=== PATIENT | female | born 1990 | race Caucasian/White ===

== ENCOUNTER 2017-08-07 20:52 | Emergency (ER) | payer BC ==
[~2017-08-07] VITALS: Ht 160 cm; Wt 52.2 kg
[2017-08-07 21:31] VITALS: BP 120/84
[2017-08-07] MEDS ORDERED: hydrOXYzine PAMOATE 25 MG CAPSULE PO STA (21:34)
[2017-08-07] MEDS ORDERED: FAMOTIDINE 20 MG TABLET PO ONE (21:45)
[2017-08-07] MEDS ORDERED: methylPREDNISolone SOD SUCC PF 125 MG/2 ML VIAL. IM ONE (21:45)
--- NOTE | 2017-08-07 22:06 | PHYS DOC ---
Past History Past Medical History: No Pertinent History, Pneumonia Past Surgical History: Appendectomy, Smoking: Cigarettes Alcohol Use: Occasionally Drug Use: None Adult General Chief Complaint Chief Complaint: ALLERGIC REACTION HPI HPI 27-year-old female patient complaining of sudden onset of generalized pruritic rash with throat swelling and hoarseness and shortness of breath about an over prior to arrival. Patient states she took 2 Benadryl and her hoarseness and shortness of breath improves but his rash and itching is not changing. Patient states she had the same problem 1 year ago after eating baby carrot denies taking carrot today and states she had taco sauce. Patient denies fever and chills, , nausea and vomiting, change of vision and focal neurodeficit. Review of Systems Review of Systems Constitutional: Denies fever or chills [] Eyes: Denies change in visual acuity, redness, or eye pain [] HENT: Denies nasal congestion or sore throat [] Respiratory: Reports cough and shortness of breath Cardiovascular: No additional information not addressed in HPI [] GI: Denies abdominal pain, nausea, vomiting, bloody stools or diarrhea [] : Denies dysuria or hematuria [] Musculoskeletal: Denies back pain or joint pain [] Integument: Reports rash with itching Neurologic: Denies headache, focal weakness or sensory changes [] Endocrine: Denies polyuria or polydipsia [] All other systems were reviewed and found to be within normal limits, except as documented in this note. Current Medications Current Medications Current Medications Medications (Trade) Dose Ordered Sig/Jackie Start Time Stop Time Status Last Admin Dose Admin Famotidine (Pepcid) 20 mg 1X ONCE 08/07/17 21:45 08/07/17 21:53 DC Hydroxyzine Pamoate (Vistaril) 25 mg STAT STAT 08/07/17 21:34 08/07/17 21:53 DC Methylprednisolone Sodium Succinate (SOLU-Medrol 125MG VIAL) 125 mg 1X ONCE 08/07/17 21:45 08/07/17 21:53 DC Allergies Allergies Allergies Coded Allergies Type Severity Reaction Last Updated Verified carrot Allergy Intermediate 08/07/17 Yes Physical Exam Physical Exam Constitutional: Well developed, well nourished, mild distress, non-toxic appearance. [] HENT: Normocephalic, atraumatic, bilateral external ears normal, oropharynx moist, no oral exudates, nose normal. [] Eyes: PERRLA, EOMI, conjunctiva normal, no discharge. [] Neck: Normal range of motion, no tenderness, supple, no stridor. [] Cardiovascular:Heart rate regular rhythm, no murmur [] Lungs & Thorax: Bilateral breath sounds clear to auscultation [] Abdomen: Bowel sounds normal, soft, no tenderness, no masses, no pulsatile masses. [] Skin: Warm, dry, and generalized erythematous rash in face and ear and trunk with mild itching Back: No tenderness, no CVA tenderness. [] Extremities: No tenderness, no cyanosis, no clubbing, ROM intact, no edema. [] Neurologic: Alert and oriented X 3, normal motor function, normal sensory function, no focal deficits noted. [] Psychologic: Affect normal, judgement normal, mood normal. [] Current Patient Data Vital Signs Vital Signs Date Time Temp Pulse Resp B/P (MAP) Pulse Ox O2 Delivery O2 Flow Rate FiO2 08/07/17 21:31 78 20 Room Air EKG EKG [] Radiology/Procedures Radiology/Procedures [] Course & Med Decision Making Course & Med Decision Making Evaluation of patient in ER showed 27-year-old male patient presented to ER generalized pruritic rash. Patient stated that she had shortness of breath and throat swelling that improved after taking Benadryl. Patient did not want to have IV line in ER. Patient treated with oral Pepcid and hydroxyzine and IM dose of Solu-Medrol and her rash and itching improved. Patient did not have shortness of breath or uvular edema. Patient had another episode of the same problem previously. Patient instructed to follow up with her primary care physician and quit smoking. Dragon Disclaimer Dragon Disclaimer This electronic medical record was generated, in whole or in part, using a voice recognition dictation system. Departure Departure: Impression: Primary Impression: Allergic reaction Additional Impressions: Rash Tobacco abuse Tobacco abuse counseling Disposition: HOME, SELF-CARE (At 2253) Condition: IMPROVED Referrals: PCP,NO (PCP) Patient Instructions: Allergies, Generic, Allergy Skin Testing, Rash, Smoking Cessation Additional Instructions: Drink plenty of liquids Follow-up with your primary care physician in 3-5 days Return to ER if not getting better Scripts Hydroxyzine Pamoate (HYDROXYZINE PAMOATE) 25 Mg Capsule 1 CAP PO TID, #20 CAP Prov: AYESHA ROGERS MD 08/07/17 Problem Qualifiers AYESHA ROGERS MD Aug 07, 2017 22:06
[2017-08-07] MEDS ORDERED: HYDR25CA75 PO (22:55)
== END 2017-08-07 23:05 | disposition home or self-care (01) ==
LOC: ER 20:52
DX: T78.40XA Allergy, unspecified, initial encounter (principal); F17.210 Nicotine dependence, cigarettes, uncomplicated; Z71.6 Tobacco abuse counseling; Z91.018 Allergy to other foods; X58.XXXA Exposure to other specified factors, initial encounter
CPT/HCPCS: 96372; 99283; J2930; Q0177